=== PATIENT | male | born 1990 | race Asian ===

== ENCOUNTER 2022-03-25 07:31 | Outpatient (CLI) | payer OTHER, SELFPAY ==
[2022-03-25 08:51] LABS: Cholesterol* 202 mg/dL (90-199); Glucose* 94 mg/dL (60-115); Triglycerides* 142 mg/dL (40-149)
[2022-03-25 08:52] LABS: HDL Cholesterol* 45 mg/dL (>=40); LDL Cholesterol Calculated 129 mg/dL (<100)
== END 2022-03-25 07:32 | disposition home or self-care (01) ==
PROVIDERS: PCP Family Medicine; Visit Provider Family Medicine
DX: Z13.1 Encounter for screening for diabetes mellitus (principal); Z13.6 Encounter for screening for cardiovascular disorders
CPT/HCPCS: 80061; 82947